=== PATIENT | female | born 1985 | race Caucasian/White ===

== ENCOUNTER → 2019-10-16 | Outpatient (CLI) | payer OTHER ==
--- NOTE | 2019-10-17 20:09 | CT ---
EXAM DESCRIPTION: Head w/Contrast: Computed Tomography. CLINICAL HISTORY: OTHER DISORDERS OF PITUITARY GLAND COMPARISON: None. TECHNIQUE: Spiral -axial scans through the head and brain at 2.5 x 20 mm intervals, without and with nonionic IV contrast. Coronal and sagittal 2.0 mm reconstructions. No adverse reactions. Total Exam DLP: 1719.94 mGy-cm. This exam was performed according to our departmental CT dose-optimization program which includes automated exposure control, adjustment of the mA and/or kV according to patient size and/or use of iterative reconstruction technique; to reduce radiation dose to as low as reasonably achievable (ALARA). FINDINGS: The pituitary gland occupies the inferior half of the sella. No large enhancing or nonenhancing mass within the gland. No suprasellar mass enhancing or nonenhancing. Pituitary infundibulum is in the midline with no displacement. No hemorrhage. No mass-effect and no midline shift. Normal contrast enhancement. Normal gant-white matter differentiation. No abnormal radiodense material in the brain parenchyma. Vascular calcifications not present; physiologic calcifications in the pineal gland and choroid plexus. No effacement or displacement of the ventricles, CSF spaces, or subdural spaces. Normal contrast enhancement. No extra axial fluid collection or hemorrhage. No gross abnormalities of the bony calvarium. No unusual enhancement in the [place]. IMPRESSION: 1. No hemorrhage intra-axial or extra-axial. No mass effect or midline shift.. Normal contrast enhancement in the intra-axial brain and extra-axial brain. No mass effect on the [place]. 2. Pituitary gland occupies approximately 50% of the sella. No large nonenhancing or hyperenhancing mass in the gland. No suprasellar mass or displacement of the pituitary infundibulum and no mass effect on the optic chiasm. This examination is not as sensitive as MR scan of the pituitary gland without and with gadolinium IV contrast. Electronically signed by: Josh Bro MD 10/17/2019 8:07 PM [employer]
== END ==
LOC: CT 09:05
PROVIDERS: ATTEND Nurse Practitioner Family
DX: E23.6 Other disorders of pituitary gland (principal)